=== PATIENT | female | born 1940 | race Caucasian/White ===

== ENCOUNTER 2016-12-09 16:32 | Emergency (ER) | payer MEDICARE ==
[2016-12-09 16:47] VITALS: BP 122/57
--- NOTE | 2016-12-09 17:23 | ERNOTE ---
Medical Problem HPI - Narrative Date of Service: 12/09/16 - General Chief Complaint: General Assessment Time Seen by Provider: 12/09/16 17:06 Source: patient Exam Limitations: no limitations - Immun/Allergies/Home Medications Immunizations: IMMUNIZATION HX Immunizations Up to Date Yes History of Influenza Vaccine Yes Hx Pneumococcal Vaccination Yes Allergies/Adverse Reactions: Allergies Iodinated Contrast Media - IV Dye Allergy (Intermediate, Verified 12/09/16 16:50 ) Hives Home Medications: HOME MEDICATIONS Lidocaine [Lidoderm 5%] 1 patch TP DAILY PRN #30 patch 12/09/16 [Last Taken Unknown] - History of Present History Narrative: Pt. comes in with c/o R lateral rib pain after she twisted in her chair three days ago and felt sudden pain. Pt. denies feeling or hearing any pops or clicks. Pt. states that she has been using heat and Ibuprofen without relief. Pt. denies any L sided or midsternal chest pain, NVD, SOB, fever, or recent illness. Pt. states that she has a chronic cough and coughing, laughing, and deep breathing worsens the pain. Review of Systems - Review of Systems Constitutional: Present: no symptoms reported. Absent: recent illness, fever, chills, weakness, fatigue, malaise EYE: Present: no symptoms reported ENT: Present: no symptoms reported Respiratory: Present: no symptoms reported. Absent: shortness of breath, cough , wheezing Cardiology: Present: chest pain - RL rib. Absent: palpitations, edema Gastrointestinal/Abdominal: Present: no symptoms reported Genitourinary: Present: no symptoms reported Musculoskeletal: Present: no symptoms reported. Absent: back pain, joint pain Neurological: Present: no symptoms reported. Absent: headache, dizziness/light- headedness, numbness, tingling All Other Systems: All systems neg except as marked - Patient's Past Medical History Patient History - Medical: Arthritis, Diabetes Type 2, Hypothyroidism, Kidney stone, UTI'S Patient History - Cardiac/Respiratory: Hypertension, Hyperlipidemia Patient History - Cancer: No Hx of Cancer Patient History - Surgical Procedures: D & C, Hysterectomy - Social History Living Situations: home Psych History: No pertinent hx Smoking Status: Never smoker Alcohol Use: none Drug Use: none - Immunizations Immunizations Up to Date: Yes Hx Pneumococcal Vaccination: Yes History of Influenza Vaccine: Yes Physical Exam - Physical Exam General Appearance: Present: wd/wn, alert, no apparent distress Eye Exam: Normal inspection: bilateral, PERRL: bilateral, EOMI: bilateral Ears, Nose, Throat: Present: normal ENT inspection, hearing grossly normal, normal pharynx Neck: Present: normal inspection, nontender. Absent: lymphadenopathy (R), lymphadenopathy (L) Respiratory: Present: no respiratory distress, normal breath sounds, no accessory muscle use, lungs clear, chest tenderness - R lateral 7th and 8th rib Cardiovascular/Chest: Present: regular rate, rhythm, no murmur, normal peripheral pulses Gastrointestinal/Abdominal: Present: normal bowel sounds, nontender Back Exam: Present: normal inspection, normal range of motion, no CVA tenderness , no vertebral tenderness Extremity Exam: Present: normal inspection, non-tender, no edema, normal range of motion Neurological Exam: Present: alert, oriented, normal mood/affect, no motor/ sensory deficits Skin Exam: Present: normal color, warm/dry ED Progress - Vital Signs Patient's Vital Signs:: I have reviewed the patient's vital signs. Vital Signs: Vital Signs 12/09/16 16:43 Temperature 36.3 C L Pulse Rate 67 Respiratory 18 Rate Blood Pressure 122/57 O2 Sat by Pulse 98 Oximetry - X-Ray X-Ray #1 X-Ray: ribs Interpretation: Interp. by me X-ray Comments: No acute fracture - Progress/Reassessment Chief Complaint: General Assessment Departure - Departure Clinical Impression: Costochondritis Disposition: Home self-care Condition: Good Instructions: Costochondritis, [id number] Additional Instructions: Keep using heat for pain as well as your Ibuprofen start using lidoderm patches on there daily Prescriptions: Lidocaine [Lidoderm 5%] 1 patch TP DAILY PRN #30 patch PRN Reason: Pain
== END 2016-12-09 18:20 | disposition home or self-care (01) ==
LOC: ER 16:32
DX: M94.0 Chondrocostal junction syndrome [Tietze] (principal)

== ENCOUNTER 2017-05-05 15:13 | Emergency (ER) | payer MEDICARE ==
[2017-05-05 15:51] VITALS: BP 143/78
--- NOTE | 2017-05-05 16:20 | ERNOTE ---
Lower Extremity HPI - Narrative Date of Service: 05/05/17 - General Lower Extremities Pain: leg: left Time Seen by Provider: 05/05/17 15:55 Source: patient, RN notes reviewed, old records Exam Limitations: no limitations - Immun/Allergies/Home Medications Immunizations: IMMUNIZATION HX Immunizations Up to Date Yes History of Influenza Vaccine No Hx Pneumococcal Vaccination No Allergies/Adverse Reactions: Allergies Allergy/AdvReac Type Severity Reaction Status Date / Time Iodinated Contrast Media - Allergy Intermediate Hives Verified 05/05/17 15:51 Oral and Home Medications: HOME MEDICATIONS Digoxin 05/05/17 [Last Taken Unknown] Hydrochlorothiazide 37.5 mg PO DAILY 05/05/17 [Last Taken Unknown] Metoprolol Tartrate [Lopressor] 25 mg PO BID 05/05/17 [Last Taken Unknown] glipiZIDE [Glucotrol Xl] 10 mg PO BID 05/05/17 [Last Taken Unknown] metFORMIN HCL [Metformin HCl ER] 1,000 mg PO BID 05/05/17 [Last Taken Unknown] - History of Present Illness Narrative: Lia is a 77-year-old female ambulatory to the emergency department for ongoing pain in her left lateral calf. This began approximately 3 weeks ago. She was pulling bags of landscaping rock out of the back of a truck. She made a twisting movement and experienced sudden pain from her low back and hip to her lower leg. Her back and hip pain have improved, but she continues to have lower leg pain. An x-ray has been done and this was normal. She has been taking ibuprofen for pain without much improvement. Location of Incident: home Method of Injury: Reports: twisted Modifying Factors - (Improves): Reports: rest Modifying Factors - (Worsens): Reports: movement Associated Symptoms: Denies: unable to bear weight, snapping, popping sensation Subsequent Symptoms: Denies: sensory loss, numbness, motor loss Prior Treament: Reports: recently seen Review of Systems - Review of Systems Constitutional: Absent: fever, fatigue, malaise EYE: Present: no symptoms reported ENT: Present: no symptoms reported Respiratory: Absent: shortness of breath, cough Cardiology: Absent: chest pain, edema, claudication Gastrointestinal/Abdominal: Present: no symptoms reported Genitourinary: Present: no symptoms reported Musculoskeletal: Present: muscle pain. Absent: joint pain, joint swelling Skin: Absent: rash, lesions, lumps Neurological: Absent: weakness, numbness, tingling Endocrine: Present: no symptoms reported Hematologic/Lymphatic: Present: no symptoms reported Psych: Present: no symptoms reported - Patient's Past Medical History Patient History - Medical: Arthritis, Diabetes Type 2, Hypothyroidism, Kidney stone, UTI'S Patient History - Cardiac/Respiratory: Hypertension, Hyperlipidemia Patient History - Cancer: No Hx of Cancer Patient History - Surgical Procedures: D & C, Hysterectomy Patient History - Other: None - Social History Living Situations: home Abuse History: No History of abuse Psych History: No pertinent hx Smoking Status: Never smoker Alcohol Use: none Drug Use: none - Immunizations Immunizations Up to Date: Yes Hx Pneumococcal Vaccination: No History of Influenza Vaccine: No Physical Exam - Physical Exam General Appearance: Present: wd/wn, alert, no apparent distress Extremity Exam: Present: normal range of motion, no edema, other - Left lateral calf tender to palpation from knee to ankle. Absent: bony tenderness, joint redness, joint swelling Neurological Exam: Present: alert, oriented, normal mood/affect, no motor/ sensory deficits, other - Gait mildly impaired by pain Skin Exam: Present: normal color, warm/dry ED Progress - Vital Signs Patient's Vital Signs:: I have reviewed the patient's vital signs. Vital Signs: Vital Signs 05/05/17 15:47 Temperature 37.2 C Pulse Rate 79 Respiratory 16 Rate Blood Pressure 143/78 O2 Sat by Pulse 97 Oximetry - Progress/Reassessment Chief Complaint: Lower Extremity Pain/ Injury Progress:: Unchanged Departure Clinical Impression: Left leg injury Qualifiers: Encounter type: initial encounter Qualified Code(s): S89.92XA - Unspecified injury of left lower leg, initial encounter - Departure Disposition: Home Follow Up Needed Condition: Stable Instructions: Muscle Strain, [id number] Additional Instructions: Ice to sore area periodically KATINA wrap for support Tylenol for pain Limit activity as needed Referrals: Kosta Major, [facility] - 05/16/17 1:00 pm
== END 2017-05-05 16:25 | disposition home or self-care (01) ==
LOC: ER 15:13
DX: S89.92XA Unspecified injury of left lower leg, initial encounter (principal); Z87.440 Personal history of urinary (tract) infections; Z87.442 Personal history of urinary calculi; E11.9 Type 2 diabetes mellitus without complications; I10 Essential (primary) hypertension; X50.0XXA Overexertion from strenuous movement or load, initial encounter; Y92.007 Garden or yard of unspecified non-institutional (private) residence as the place of occurrence of the external cause

== ENCOUNTER 2017-12-05 09:43 | Day surgery (SDC) | payer MEDICARE ==
--- NOTE | 2017-12-05 10:33 | OR ---
Anesthesia Pre Procedure Eval Date of Service: 12/05/17 Pre Procedure Evaluation: Last Vital Signs Temp 36.7 C 12/05/17 09:51 Pulse 71 12/05/17 09:51 Resp 16 12/05/17 09:51 BP 138/53 12/05/17 09:51 Pulse Ox 98 12/05/17 09:51 Anesthesia Pre Procedure Evaluation DATE: 12/05/2017. TIME: 1030. INDICATIONS: Lumbar radiculopathy left leg. PAST MEDICAL HISTORY: Is a 77-year-old female with a history of low back pain and left leg radiculopathy. She has had epidural steroid injections in the past with good relief. EXAM: MRI report and films were reviewed. Pain is 7/10 on pain scale at present. ASSESSMENT OF MEDICAL STATUS: O.K. to proceed with NOEMY. PLANNED PROCEDURE: Fluoroscopic guided epidural steroid injection L4-5. Home Medications: HOME MEDICATIONS Hydrochlorothiazide 37.5 mg PO DAILY 05/05/17 [Last Taken Unknown] Metoprolol Tartrate [Lopressor] 25 mg PO BID 05/05/17 [Last Taken 12/05/17 08:00 ] glipiZIDE [Glucotrol Xl] 10 mg PO BID 05/05/17 [Last Taken Unknown] metFORMIN HCL [Metformin HCl ER] 1,000 mg PO BID 05/05/17 [Last Taken Unknown]
[2017-12-05] MEDS ORDERED: LIDOCAINE HCL/PF 5 ML VIAL IJ ONE (10:50)
[2017-12-05] MEDS ORDERED: IOPAMIDOL 20 ML VIAL IJ ONE (10:50)
[2017-12-05] MEDS ORDERED: DEXAMETHASONE SODIUM PHOSPHATE 10 MG/ML VIAL IJ ONE (10:50)
--- NOTE | 2017-12-05 10:56 | OR ---
Anesthesia Procedure Note - Anesthesia Procedure Note Date of Service: 12/05/17 Narrative: Vital Signs - Last Taken Temp 36.7 C 12/05/17 09:51 Pulse 71 12/05/17 09:51 Resp 16 12/05/17 09:51 BP 138/53 12/05/17 09:51 Pulse Ox 98 12/05/17 09:51 12/05/17 10:55 ANESTHESIA PROCEDURE NOTE Date of Procedure: 12/05/2017. Time of procedure: 1040. Performed by: Ole Ornelas CRNA Lens Assistant: None. Preprocedure diagnosis: Lumbar radiculopathy. Post procedure diagnosis: Same. Procedure: Fluoroscopic guided epidural Steroid Injection L4-5. Indications: This is a 77-year-old call female with a history of low back pain and left leg radiculopathy. Potential risks and benefits of the procedure were discussed with the patient and consent was obtained. Findings: See below. Details of the procedure: The patient was brought back to operating room #3. The patient was then placed in the prone position to comfort. DuraPrep was applied to the patient's back. Patient was then draped in sterile fashion. Lidocaine 1% was infiltrated to the skin and subcutaneous tissues at the level of the L4-5 interspace using fluoroscopic guidance. The epidural space was identified using a 20-gauge Tuohy needle with [id number] technique. 1 mL of Isovue contrast was then injected after negative aspiration for blood and CSF. The epidural space was outlined in the AP and lateral views. Preservative free Decadron 10 mg + 5 mL of 1% preservative-free lidocaine was administered to the epidural space after negative aspiration for blood and CSF. The Tuohy needle was removed intact. A Band-Aid was applied to the patient's back. The patient was then placed in a supine position for 5 minutes before returning to the ambulatory surgical unit. Total fluoroscopy time: 9.9 seconds. Cumulative dose: 4.06 mGy. EBL: Minimal. Fluids: N/A. Specimen: N/A. Post procedure condition: The patient tolerated the procedure well. No complications were noted. No motor weaknesses or paresthesias were noted upon discharge. Thank you for this consultation. Ole Ornelas CRNA
[2017-12-05 11:56] VITALS: BP 132/55
== END 2017-12-05 09:44 | disposition home or self-care (01) ==
LOC: AMB 09:43
PROVIDERS: ATTEND Internal Medicine
PROC: 3E0R3BZ Introduction of Anesthetic Agent into Spinal Canal, Percutaneous Approach (ICD-10-PCS; principal; 2017-12-05)
PROC: 3E0R33Z Introduction of Anti-inflammatory into Spinal Canal, Percutaneous Approach (ICD-10-PCS; 2017-12-05)
DX: M54.16 Radiculopathy, lumbar region (principal)